=== PATIENT | female | born 1960 | race Asian ===

== ENCOUNTER 2019-10-19 08:53 | Day surgery (SDC) | payer OTHER ==
[2019-10-17 12:48] VITALS: BMI 27.5
[2019-10-19] MEDS ORDERED: LACTATED RINGERS SOLUTION 1,000 ML IV SCH (10:30)
[2019-10-19] MEDS ORDERED: ONDANSETRON 4 MG/2 ML VIAL IVPUSH PRN (10:30)
[2019-10-19] MEDS ORDERED: oxyCODONE HCL 5 MG TABLET PO PRN (10:30)
[2019-10-19] MEDS ORDERED: ceFAZolin SODIUM 1 GM VIAL ONE (10:49)
[2019-10-19] MEDS ORDERED: DEXAMETHASONE SOD PHOSPHATE 4 MG/1 ML VIAL ONE (10:49)
[2019-10-19] MEDS ORDERED: PROPOFOL 20 ML ONE (10:49)
[2019-10-19] MEDS ORDERED: ONDANSETRON 4 MG/2 ML VIAL ONE ×2 (10:49→14:07)
[2019-10-19] MEDS ORDERED: MIDAZOLAM HCL 2 MG/2 ML SINGLE DOSE VIAL ONE (10:55)
[2019-10-19] MEDS ORDERED: SODIUM CHLORIDE 0.9% P/F 10 ML VIAL IJ ONE (10:56)
[2019-10-19] MEDS ORDERED: BUPIVACAINE HCL/PF 0.5% (5 MG/ML) 30 ML VIAL IJ ONE (10:56)
[2019-10-19] MEDS ORDERED: DESFLURANE GAS 240 ML BOTTLE IH ONE (12:23)
[2019-10-19 13:40] VITALS: TEMP 98
--- NOTE | 2019-10-19 14:40 | OP ---
DATE OF OPERATION: 10/19/2019 LOCATION: [facility]. SURGEON: Barber Rogers MD SAFETY DEPOSIT CLERK: JACKSON Trinh The PA listed above was present and assisted at surgery. Their presence was absolutely medically necessary for the completion of the procedure. They helped hold the arthroscopy, pass instruments (and implants when indicated) and the procedure could not have been completed without their assistance. PREOPERATIVE DIAGNOSES: 1. Right knee patellar fracture. 2. Right knee cartilage injury. 3. Right knee synovitis. POSTOPERATIVE DIAGNOSES: 1. Right knee patellar fracture. 2. Right knee cartilage injury. 3. Right knee synovitis. PROCEDURE: 1. Open reduction and internal fixation of right patella using cannulated screws. 2. Right knee arthroscopy with chondroplasty and abrasion-plasty. 3. Right knee arthroscopy with synovectomy. FINDINGS: 1. No evidence of medial or lateral meniscal tear. 2. Horizontal fracture of patella at the one-third/two-third junction, one third inferiorly with cartilage injury on the undersurface. 3. Grade 2/3 central cartilage injury with cartilage flap 6 cm x 4 cm, medial femoral condyle. 4. ACL and PCL intact. 5. Minor grade 2 cartilage injury, anterolateral tibial plateau. 6. Patellar fracture as described with surrounding grade 2-4 cartilage injury along the patella and patellofemoral trochlea centrally. DESCRIPTION OF PROCEDURE: Informed consent was obtained. Patient was taken to the operating room where the right lower extremity was prepped and draped in a sterile fashion. Tourniquet was placed on the upper leg and inflated to 250 mmHg. Using standard arthroscopic technique, lateral incision and portal were made which allowed for introduction of the camera into the suprapatellar bursa under direct visualization. Medial incision was made. The fracture was identified from underneath. It was found to be displaced with grade 2-4 cartilage injury on the superior and inferior portions. These were debrided, and a bleeding surface was created, removing all loose cartilage from the joint. Probing of the medial and lateral meniscus found no tears. There was cartilage injury along the medial femoral condyle. Treated with chondroplasty. This was central, grade 2-3 changes lateral/minor grade 2 changes. Grade 4 changes along the patellofemoral trochlea and the patella surrounding the fracture were treated with a chondroplasty and abrasion-plasty. Knee was then drained. Incision was made 4 cm proximal to the superior pole of patella to the patellar tendon. This was taken down. Fracture was identified, and a curette was used to remove debris. The wound was irrigated with copious amounts of irrigation. Using C-arm fluoroscopy, two 4.0 cannulated screws were placed from superior to inferior while a reduction clamp was placed. These were confirmed to have good reduction and placement, and length was confirmed, all by C-arm fluoroscopy. A number 2 FiberWire was then passed through the 2 cannulated screws. These were crossed to create a cage-like cross, and they were tightened in order to further reduce the fracture. Wound was irrigated with copious amounts of irrigation. The incisions made in the quadriceps and patellar tendon were secured with number 2 FiberWire, and the capsular area was oversewn with number 2 FiberWire where it had been disrupted with the fracture. Layered closure of 0 Vicryl, 2-0 Vicryl, and luz elena was performed. A splint was placed with the leg in extension. Patient was transferred to the recovery room without complication. BARBER ROGERS M.D. [id number]
[2019-10-19] MEDS ORDERED: oxyCODONE HCL 5 MG TABLET ONE (15:36)
[2019-10-19 16:53] VITALS: PULSE 101
[2019-10-19 17:04] VITALS: BP 126/84
--- NOTE | 2019-10-25 18:16 | PATH ---
Surgical Pathology Report Patient Name: BRIE SHARIF [facility]. Rec. #: [id number] /Age/Gender: 1960 (Age: 59) / F Account: [id number] Location: [facility] Taken: 10/20/2019 Received: 10/19/2019 Reported: 10/25/2019 Physicians: Barber Kasper M.D. Specimen(s) Received RIGHT KNEE SHAVINGS Clinical History Right patella fracture Final Diagnosis RIGHT KNEE SHAVINGS: FRAGMENTS OF CARTILAGE AND SYNOVIAL TISSUE WITH FOCAL FIBROSIS. ORGANIZING BLOOD CLOT AND FIBRINOUS EXUDATE PRESENT. Electronically Signed Rob Wolf M.D. Gross Description Received in formalin labeled "right knee shavings," is a 2.4 x 1.7 x 0.3 cm aggregate of cho brown soft tissue fragments. The formalin is filtered and the specimen is entirely submitted in one cassette. /10/23/2019 saudi10/23/2019
== END 2019-10-19 16:35 | disposition home or self-care (01) ==
LOC: FASU 08:53
PROVIDERS: ATTEND Orthopaedic Surgery
PROC: 0QSD04Z Reposition Right Patella with Internal Fixation Device, Open Approach (ICD-10-PCS; 2019-10-19)
PROC: 0SBC4ZZ Excision of Right Knee Joint, Percutaneous Endoscopic Approach (ICD-10-PCS; 2019-10-19)
PROC: 0SBC4ZZ Excision of Right Knee Joint, Percutaneous Endoscopic Approach (ICD-10-PCS; 2019-10-19)
PROC: 0QBD0ZZ Excision of Right Patella, Open Approach (ICD-10-PCS; principal; 2019-10-19 11:56)
DX: S82.001A Unspecified fracture of right patella, initial encounter for closed fracture (principal); S83.8X1A Sprain of other specified parts of right knee, initial encounter; M65.861 Other synovitis and tenosynovitis, right lower leg; X58.XXXA Exposure to other specified factors, initial encounter; Y93.9 Activity, unspecified; Y92.9 Unspecified place or not applicable
CPT/HCPCS: 82962; 88304-TC; 94760